=== PATIENT | female | born 1950 | race Caucasian/White ===

== ENCOUNTER 2022-01-24 05:48 | Day surgery (SDC) | payer MEDICARE ==
[2022-01-23 13:21] LABS: BASOPHILS % (AUTO) 0.3 % (0.0-5.0); EOSINOPHILS % (AUTO) 1.1 % (0.0-8.0); LYMPHOCYTES % (AUTO) 15.1 % (21.0-51.0); MEAN CORPUSCULAR HEMOGLOBIN 27.8 pg (27.0-33.0); MEAN CORPUSCULAR VOLUME 92.8 fL (79-99); MONOCYTES % (AUTO) 10.9 % (3.0-13.0); NEUTROPHILS % (AUTO) 71.8 % (40.0-77.0); PLATELET COUNT (AUTO) 371 K/uL (130-400); RED BLOOD CELL COUNT(AUTO) 3.34 MIL/uL (4.00-5.50); RED CELL DISTRIBUTION WIDTH 14.8 % (11.0-15.5)
[2022-01-23 13:35] LABS: CREATININE 0.8 mg/dL (0.5-1.5)
[2022-01-23 13:47] LABS: INR 1.37 (0.85-1.15); PROTHROMBIN TIME 14.7 SEC (9.6-11.6)
[2022-01-23 13:48] LABS: PARTIAL THROMBOPLASTIN TIME 30.2 SEC (26.3-35.5)
[2022-01-23 15:22] VITALS: BP 111/55
[2022-01-23 15:40] LABS: APPEARANCE,URINE CLOUDY (CLEAR); BILIRUBIN,URINE NEGATIVE (NEGATIVE); COLOR,URINE YELLOW (YELLOW); GLUCOSE, URINE (UA) NEGATIVE (NEGATIVE); KETONES,URINE NEGATIVE (NEGATIVE); LEUKOCYTE ESTERASE ,URINE TRACE (NEGATIVE); NITRATE,URINE NEGATIVE (NEGATIVE); OCCULT BLOOD,URINE NEGATIVE (NEGATIVE); PH,URINE 5.5 (5.0-8.0); PROTEIN,URINE 30 mg/dL (NEGATIVE)
[2022-01-23 15:59] LABS: BACTERIA,URINE Moderate /HPF (None Seen); RBC,URINE 0-1 /HPF (0-1)
[2022-01-23 16:00] LABS: SQUAMOUS EPITHELIAL CELL,UR Few /HPF (0-2)
[~2022-01-24] VITALS: Ht 162.6 cm; Wt 113.1 kg
[2022-01-24] VITALS (16 sets, daily range): BP systolic 105–135; BP diastolic 41–76
[~2022-01-24 05:48] MED LIST: ALBU1.252 IH; ALBUHFA IH; ASCO1TAB40 PO; ATOR40TA71 PO; BETA1TAB20 PO; BUME1TAB7 PO; ENOX100D4 SQ; FLUT1BLS3 IH; GABA-529 PO; GUAI600T50 PO; LORA10TA7 PO; LOSA25TA41 PO; MELA5TAB14 PO; MULT-1081 PO; OMEP20CA12 PO; POTA10CA44 PO; WARF4TAB72 PO
[2022-01-24] MEDS ORDERED: LACTATED RINGERS 1000ML 1,000 ML IV ONE (06:32)
[2022-01-24] MEDS ORDERED: MIDAZOLAM HCL 1 MG/ML 2ML VIAL ONE (09:10)
[2022-01-24] MEDS ORDERED: LIDOCAINE PF 100MG/5ML (2%) SYRINGE 5ML ONE (09:10)
[2022-01-24] MEDS ORDERED: PROPOFOL 10 MG/ML 20ML VIAL IV ONE (09:10)
[2022-01-24] MEDS ORDERED: DEXAMETHASONE SOD PHOSPHATE 10MG/ML 1ML VIAL ONE (09:10)
[2022-01-24] MEDS ORDERED: SUCCINYLCHOLINE 200MG/10ML SYR ONE (09:10)
[2022-01-24] MEDS ORDERED: FENTANYL CITRATE PF 50 MCG/1 ML 2ML VIAL ONE (10:34)
[2022-01-24] MEDS ORDERED: ONDANSETRON 4MG INJ ONE ×2 (10:35→11:20)
[2022-01-24] MEDS ORDERED: MEPERIDINE-PF 25 MG/ML SYG ONE ×2 (11:19→11:33)
== END 2022-01-24 12:45 | disposition home or self-care (01) ==
LOC: DAH 05:48
PROVIDERS: ATTEND Obstetrics & Gynecology
DX: N95.0 Postmenopausal bleeding (principal); C54.1 Malignant neoplasm of endometrium; I10 Essential (primary) hypertension; I45.10 Unspecified right bundle-branch block; E78.5 Hyperlipidemia, unspecified; I48.91 Unspecified atrial fibrillation; E66.01 Morbid (severe) obesity due to excess calories; Z82.49 Family history of ischemic heart disease and other diseases of the circulatory system; Z79.899 Other long term (current) drug therapy; Z98.51 Tubal ligation status; Z98.890 Other specified postprocedural states; Z98.891 History of uterine scar from previous surgery; Z95.0 Presence of cardiac pacemaker; Z85.3 Personal history of malignant neoplasm of breast; Z68.41 Body mass index [BMI] 40.0-44.9, adult
CPT/HCPCS: 80048; 85025; 85610; 85730; 86850; 86900; 86901; 87088; 87426; 81001; 36415; 93005; 58120; A6260; J7120 ×2; A4351; J3010; J0330; J1100; J2001; J2250; J2704; J2405 ×2; J2175 ×2; A4215; A4223; A4222; A4221; A4663

== ENCOUNTER → 2022-03-16 | Outpatient (CLI) | payer MEDICARE ==
[~2022-03-16] MED LIST changes: +IOHEXOL 350 MG/ML 100ML INFUS..BTL IV ONE
== END | disposition home or self-care (01) ==
LOC: RAH 09:36
PROVIDERS: ATTEND Internal Medicine
DX: C78.7 Secondary malignant neoplasm of liver and intrahepatic bile duct (principal); C54.1 Malignant neoplasm of endometrium; J90 Pleural effusion, not elsewhere classified; J92.9 Pleural plaque without asbestos; N26.1 Atrophy of kidney (terminal)
CPT/HCPCS: 74178; Q9967